=== PATIENT | male | born 1965 | race Caucasian/White ===

== ENCOUNTER → 2021-04-27 | Outpatient (CLI) | payer OTHER ==
--- NOTE | 2021-04-27 12:41 | 2DMMODE ---
[facility] [place] [address] 2 D/M-MODE ECHOCARDIOGRAM Name: NINO ADAM Room #: REG ALEXA ..#: [id number] Admission: 04/27/21 Attend Phys: Richie Cohen MD Discharge: Date of : 63 Report #: [id number] THIS REPORT FOR: cc: Jewel Blackwood,Hammad Chacon MD [facility] ~ APPROVED REPORT Study performed: 04/27/2021 11:18:51 EXAM: Comprehensive 2D, Doppler, and color-flow Echocardiogram Patient Location: Out-Patient Status: routine BSA: 2.56 HR: 89 bpm BP: 136/86 mmHg Rhythm: NSR Other Information Study Quality: Adequate Indications Left leg edema. Hx: Right AKA. 2D Dimensions RVDd: 37.48 mm IVSd: 10.92 (7-11mm) LVOT Diam: 23.45 (18-24mm) LVDd: 51.95 mm PWd: 10.96 (7-11mm) Ascending Ao: 35.82 (22-36mm) LVDs: 34.81 (25-40mm) Left Atrium: 36.66 (27-40mm) Aortic Root: 37.37 mm Volumes Left Atrial Volume (Systole) Single Plane 4CH: 73.85 mL Single Plane 2CH: 85.38 mL LA ESV Index: 33.00 mL/m2 Aortic Valve AoV Peak Gavin.: 1.88 m/s AO Peak Gr.: 14.13 mmHg LVOT Max P.96 mmHg LVOT Max V: 1.41 m/s KAT Vmax: 3.24 cm2 [facility] [address] [address] 2 D/M-MODE ECHOCARDIOGRAM Name: IZAIAH ADAMN Room #: REG CL [facility]#: [id number] Admission: 04/27/21 Attend Phys: Richie Cohen MD Discharge: Date of : 63 Report #: [id number] Mitral Valve E/A Ratio: 0.8 MV Decel. Time: 233.24 ms MV E Max Gavin.: 0.81 m/s MV A Gavin.: 0.98 m/s MV PHT: 67.64 ms IVRT: 72.66 ms Pulmonary Valve PV Peak Gavin.: 1.18 m/s PV Peak Gr.: 5.57 mmHg Tricuspid Valve RAP Estimate: 5.00 mmHg Left Ventricle The left ventricle is normal size. There is normal LV segmental wall motion. There is normal left ventricular wall thickness. Left ventricular systolic function is normal. LVEF is 60-65%. Mild diastolic dysfunction is present (impaired relaxation pattern). Right Ventricle The right ventricle is normal size. The right ventricular systolic function is normal. Atria The left atrium size is normal. The right atrium size is normal. Aortic Valve The aortic valve is normal in structure. No aortic regurgitation is present. There is no aortic valvular stenosis. Mitral Valve The mitral valve is normal in structure. There is no mitral valve regurgitation noted. No evidence of mitral valve stenosis. Tricuspid Valve The tricuspid valve is normal in structure. There is no tricuspid valve regurgitation noted. Unable to assess PA pressure. Pulmonic Valve The pulmonary valve is normal in structure. Trace pulmonic regurgitation. [facility] [address] [place] [address] 2 D/M-MODE ECHOCARDIOGRAM Name: NINO ADAM Room #: REG [facility]#: [id number] Admission: 04/27/21 Attend Phys: Richie Cohen MD Discharge: Date of : 63 Report #: [id number] Great Vessels The aortic root is normal in size. The ascending aorta is normal in size. IVC is normal in size and collapses >50% with inspiration. Pericardium There is no pericardial effusion. <Conclusion> Technically difficult study normal left ventricle size/wall thickness Ejection fraction 60% Normal right ventricle size/function Normal atrial size Normal aortic/mitral valve structure and function No tricuspid valve insufficiency Normal aortic root size No pericardial effusion <ELECTRONICALLY SIGNED> By: Hammad James MD, [facility] 04/27/21 1240 1240 1240 Hammad James MD, FACC /INF
== END ==
LOC: CV 04-20 11:42
PROVIDERS: ATTEND Internal Medicine
DX: R60.0 Localized edema (principal); L53.9 Erythematous condition, unspecified